=== PATIENT | female | born 1985 | race Caucasian/White ===

== ENCOUNTER 2023-09-03 11:06 | Emergency (ER) | payer SELFPAY ==
[2023-09-03] MEDS: Ketorolac 30 MG/ML SDV IVPUSH ONE (11:38)
[2023-09-03] MEDS: Sodium Chloride 0.9% 1,000 ML IV SCH (11:39)
[2023-09-03] MEDS: Prochlorperazine 10 MG/2 ML SDV IVPUSH ONE (11:39)
[2023-09-03] MEDS: diphenhydrAMINE 50 MG/ML SDV IVPUSH ONE ×2 (11:39→12:44)
[2023-09-03] MEDS: Sodium Chloride 0.9% 10 ML Syringe FLUSH PRN (11:39)
[2023-09-03] MEDS: Dexamethasone 4 MG/ML SDV IVPUSH ONE (12:44)
== END 2023-09-03 13:08 | disposition home or self-care (01) ==
LOC: JD.ED 11:06
DX: G44.209 Tension-type headache, unspecified, not intractable (principal); Z88.1 Allergy status to other antibiotic agents
CPT/HCPCS: 70450; 96374; 96375; 96376; 99284; J0780; J1100; J1200; J1885; J3490; J7030

== ENCOUNTER 2024-02-21 10:52 | Emergency (ER) | payer OTHER | END 2024-02-21 13:25 | disposition home or self-care (01) | LOC: JD.ED 10:52 | DX: R51.9 Headache, unspecified (principal); M25.511 Pain in right shoulder; Z88.1 Allergy status to other antibiotic agents | CPT/HCPCS: 70450; 70450-26; 73030-26-RT; 73030-RT; 99284 ==